=== PATIENT | female | born 1980 | race Hispanic/Latino ===

== ENCOUNTER 2019-03-10 07:10 | Outpatient (CLI) | payer OTHER ==
--- NOTE | 2019-03-10 08:10 | ULT ---
RIGHT UPPER QUADRANT ULTRASOUND: DATE: 03/10/2019. PROVIDED CLINICAL HISTORY: Fatty liver. FINDINGS: The visualized IVC and pancreas appear normal. The liver appears echogenic compatible with fatty inf iltration. No evidence for mass or intrahepatic biliary ductal dilatation. The common duct is not dilated. The gallbladder demonstrates no stones, wall thickening, or perichol ecystic fluid. The right kidney demonstrates no evidence for hydronephrosis or mass. IMPRESSION: Fatty infiltration of the liver. POS: OFF
== END 2019-03-10 07:11 | disposition home or self-care (01) ==
LOC: BICULT 07:10
PROVIDERS: ATTEND Family Medicine
DX: K76.9 Liver disease, unspecified (principal); K76.0 Fatty (change of) liver, not elsewhere classified
CPT/HCPCS: 76705

== ENCOUNTER 2019-11-04 07:21 | Outpatient (CLI) | payer OTHER ==
--- NOTE | 2019-11-04 08:12 | ULT ---
EXAM: US Gallbladder RUQ CLINICAL HISTORY: Abdominal pain. COMPARISON: 03/10/2019 FINDINGS: Pancreas: The head and proximal pancreatic body have a normal echotexture. The remainder the pancrea s is obscured by bowel gas Liver:Increased hepatic parenchymal echotexture may be due to hepatic steatosis or hepatocellular dis ease. Subsequent limited evaluation for hepatic masses and intrahepatic biliary dilatation. 1.7 x 1.4 x 1.5 cm anechoic focus in the right hepatic lobe, compatible with hepatic cyst. Right hepatic l obe: 18.8 cm Gallbladder: No sonographic evidence of cholelithiasis, gallbladder wall thickening or pericholecysti c fluid. Nix's sign:Negative Portal Vein: Patent. Appropriate directional flow Bile ducts: Suboptimal evaluation the common bile duct. Body habitus limits evaluation. Right kidney: No hydronephrosis. Right kidney measures 11.1 x 5.2 x 5.1 cm in length. IMPRESSION: 1. Right hepatic lobe cyst. 2. No sonographic evidence of cholelithiasis or cholecystitis 3. Increased echotexture liver which may be due to hepatic steatosis or hepatocellular disease. If th ere is concern for hepatic masses, abdomen MRI can be performed.
== END 2019-11-04 07:22 | disposition home or self-care (01) ==
LOC: SCSULT 07:21
PROVIDERS: ATTEND Family Medicine
DX: K76.0 Fatty (change of) liver, not elsewhere classified (principal); R10.11 Right upper quadrant pain; K76.89 Other specified diseases of liver
CPT/HCPCS: 76705

== ENCOUNTER 2020-06-20 07:47 | Emergency (ER) | payer OTHER ==
[2020-06-20] MEDS ORDERED: Acetaminophen 500 MG TAB ONE (08:17)
[2020-06-20] MEDS ORDERED: Morphine 4 MG/ML VIAL ONE (08:17)
[2020-06-20] MEDS ORDERED: Ketorolac Tromethamine 30 MG/ML VIAL ONE (08:17)
== END 2020-06-20 09:10 | disposition home or self-care (01) ==
LOC: ERS 07:47
DX: M54.6 Pain in thoracic spine (principal); I10 Essential (primary) hypertension; Z79.899 Other long term (current) drug therapy
CPT/HCPCS: 71046; 93005; 96372; J1885; J2270

== ENCOUNTER 2022-01-31 07:43 | Outpatient (CLI) | payer OTHER | END 2022-01-31 07:44 | disposition home or self-care (01) | LOC: ULT 07:43 | PROVIDERS: ATTEND Family Medicine | DX: K76.0 Fatty (change of) liver, not elsewhere classified (principal); R79.89 Other specified abnormal findings of blood chemistry; K83.8 Other specified diseases of biliary tract | CPT/HCPCS: 76705 ==

== ENCOUNTER 2022-02-27 08:06 | Outpatient (CLI) | payer OTHER | END 2022-02-27 08:07 | disposition home or self-care (01) | LOC: BICCT 08:06 | PROVIDERS: ATTEND Family Medicine | DX: K76.0 Fatty (change of) liver, not elsewhere classified (principal); K76.89 Other specified diseases of liver; R93.2 Abnormal findings on diagnostic imaging of liver and biliary tract | CPT/HCPCS: 74160; 82565 ==

== ENCOUNTER 2024-02-03 07:49 | Outpatient (CLI) | payer OTHER ==
[2024-02-03] MEDS ORDERED: Iopamidol 370 76% 100 ML VIAL ONE (12:59)
== END 2024-02-03 07:50 | disposition home or self-care (01) ==
LOC: BICCT 07:49
PROVIDERS: ATTEND Family Medicine
DX: K76.89 Other specified diseases of liver (principal); K76.0 Fatty (change of) liver, not elsewhere classified
CPT/HCPCS: 74170; 82565; Q9967

== ENCOUNTER 2025-03-14 14:42 | Outpatient (CLI) | payer OTHER | END 2025-03-14 14:43 | disposition home or self-care (01) | LOC: BICMAMMO 14:42 | PROVIDERS: ATTEND Family Medicine | DX: Z12.31 Encounter for screening mammogram for malignant neoplasm of breast (principal) | CPT/HCPCS: 77063; 77067 ==